=== PATIENT | male | born 1960 | race Caucasian/White ===

== ENCOUNTER 2017-03-15 02:32 | Emergency (ER) | payer BC, OTHER ==
[2017-03-15 02:35] VITALS: BP 169/84; PULSE 72; RESP 20; TEMP 99.7; O2SAT 99
[2017-03-15] MEDS ORDERED: AMLO2.5T PO (02:55)
[2017-03-15 03:26] LABS: BILIRUBIN, URINE NEG (NEG); BLOOD, URINE LARGE (NEG); GLUCOSE,URINE NEG (NEG); KETONE, URINE TRACE mg/dL (NEG); NITRITE,URINE NEG (NEG); PH, URINE 5.5 (5.0-8.5); URINE LEUKOCYTE ESTERASE NEG (NEG)
[2017-03-15 03:31] LABS: URINE COLOR YELLOW (YELLW/STRAW); WBC, URINE 0-2 /hpf (0-5)
[2017-03-15 03:32] LABS: RBC, URINE 15-19 /hpf (0-3); SQUAMOUS EPITHELIAL CELL URINE 0-5 /hpf (0-5)
--- NOTE | 2017-03-15 04:14 | PD ---
HPI Chief Complaint: Flank/Kidney Pain Time Seen by Provider: 03:57 Travel History International Travel<30 days: No Contact w/Intl Traveler<30days: No Traveled to known affect area: No History of Present Illness HPI The patient is a 56-year-old male that felt sudden onset of left flank pain which was sharp and a 9 over 10. He has never had a kidney stone before but he has never had this kind of pain before. The patient could not urinate. The patient had nausea and vomiting. At 3:30 this morning the patient urinated and his pain went away completely. His nausea also went away. His pain is now 0/ 10. PFSH Past Medical History Headaches: Yes Tetanus Vaccination: Unknown Influenza Vaccination: No Past Surgical History Other Surgery: Yes (UMBILICAL/R GROIN HERNIA REPAIR) Social History Alcohol Use: No Tobacco Use: No Substance Use: No Allergies-Medications (Allergen,Severity, Reaction): Coded Allergies: No Known Allergies (Unverified , 03/15/17) Reported Meds & Prescriptions Reported Meds & Active Scripts Active Reported Amlodipine (Amlodipine Besylate) 2.5 Mg Tab 2.5 Mg PO DAILY Review of Systems Except as stated in HPI: all other systems reviewed are Neg Physical Exam Narrative GENERAL: The patient is alert, oriented 3 in no apparent distress. His vital signs show temperature 99.7 with blood pressure 169/84 but otherwise normal. SKIN: Focused skin assessment warm/dry. HEAD: Atraumatic. Normocephalic. EYES: Pupils equal and round. No scleral icterus. No injection or drainage. ENT: No nasal bleeding or discharge. Mucous membranes pink and moist. NECK: Trachea midline. No JVD. CARDIOVASCULAR: Regular rate and rhythm. No murmur appreciated. RESPIRATORY: No accessory muscle use. Clear to auscultation. Breath sounds equal bilaterally. GASTROINTESTINAL: Abdomen soft, non-tender, nondistended. Hepatic and splenic margins not palpable. No guarding or rebound is present. Specifically, no pulsatile masses are felt in the abdominal aorta is completely nontender. MUSCULOSKELETAL: No obvious deformities. No clubbing. No cyanosis. No edema. NEUROLOGICAL: Awake and alert. No obvious cranial nerve deficits. Motor grossly within normal limits. Normal speech. PSYCHIATRIC: Appropriate mood and affect; insight and judgment normal. Data Data Last Documented VS Vital Signs Date Time Temp Pulse Resp B/P (MAP) Pulse Ox O2 Delivery O2 Flow Rate FiO2 03/15/17 02:35 99.7 72 20 169/84 (112) 99 Orders Orders Urinalysis - C+S If Indicated (03/15/17 02:42) Labs Laboratory Tests Test 03/15/17 03:22 Urine Color YELLOW Urine Turbidity CLEAR Urine pH 5.5 Urine Specific [place] 1.022 Urine Protein NEG mg/dL Urine Glucose (UA) NEG mg/dL Urine Ketones TRACE mg/dL Urine Occult Blood LARGE Urine Nitrite NEG Urine Bilirubin NEG Urine Leukocyte Esterase NEG Urine RBC 15-19 /hpf Urine WBC 0-2 /hpf Urine Squamous Epithelial Cells 0-5 /hpf Urine Bacteria NONE /hpf Microscopic Urinalysis Comment CULT NOT INDICATED MDM Medical Decision Making Medical Screen Exam Complete: Yes Emergency Medical Condition: Yes Medical Record Reviewed: Yes Interpretation(s) The urine shows specific gravity 1.0-2, trace ketones, large blood with 15-19 red cells and is otherwise normal and culture is not indicated. Differential Diagnosis Left ureteral stone-passed, leaking abdominal aortic aneurysm, dissecting aortic aneurysm, urinary tract infection Narrative Course The time now is 0400 and the patient is completely pain-free and there is no abdominal tenderness now. Abdominal aortic aneurysm in this acting artery aneurysm are highly unlikely. He does not have any evidence for urinary tract infection. This appears to be a left ureteral stone that the patient passed. The blood in the urine is highly suggestive of this. The patient has an excellent history for kidney stones because of the location of the pain, severity and character of the pain as well as nausea and vomiting during the pain. Diagnosis Primary Impression: Left ureteral stone Additional Instructions: It appears that you passed a urinary stone. You have normal symptoms there is no need to see a urologist. If you start getting symptoms again you will need to see a urologist or at least her primary care physician. Motrin is a good drug for urinary stones as it will reduce the pain considerably. Med/Other Pt SpecificInfo: No Change to Meds Disposition: 01 DISCHARGE HOME Condition: Stable Broderick Rao MD Mar 15, 2017 04:14
[2017-03-15 04:25] VITALS: BP 138/76
== END 2017-03-15 04:26 | disposition home or self-care (01) ==
LOC: PHED 02:32
DX: N20.1 Calculus of ureter (principal)
CPT/HCPCS: 81001; 99283